=== PATIENT | female | born 1945 | race Two or more races ===

== ENCOUNTER 2018-05-10 10:43 | Outpatient (CLI) | payer OTHER | END 2018-05-10 10:52 | disposition home or self-care (01) | LOC: MAMO-SONO 10:43 | DX: Z12.31 Encounter for screening mammogram for malignant neoplasm of breast (principal); Z87.898 Personal history of other specified conditions; N63.14 Unspecified lump in the right breast, lower inner quadrant ==

== ENCOUNTER 2019-06-29 09:23 | Outpatient (CLI) | payer OTHER | END 2019-06-29 09:33 | disposition home or self-care (01) | LOC: MAMO-SONO 09:23 | DX: Z12.31 Encounter for screening mammogram for malignant neoplasm of breast (principal); D24.1 Benign neoplasm of right breast; D24.2 Benign neoplasm of left breast; Z87.898 Personal history of other specified conditions; Z09 Encounter for follow-up examination after completed treatment for conditions other than malignant neoplasm ==

== ENCOUNTER 2020-07-30 10:24 | Outpatient (CLI) | payer OTHER | END 2020-07-30 10:34 | disposition home or self-care (01) | LOC: MAMO-SONO 10:24 | PROVIDERS: ATTEND Specialist | DX: Z12.31 Encounter for screening mammogram for malignant neoplasm of breast (principal); D24.1 Benign neoplasm of right breast; D24.2 Benign neoplasm of left breast ==

== ENCOUNTER 2021-08-20 10:51 | Outpatient (CLI) | payer OTHER | END 2021-08-20 11:00 | disposition home or self-care (01) | LOC: MAMO-SONO 10:51 | PROVIDERS: ATTEND Specialist | DX: D24.1 Benign neoplasm of right breast (principal); D24.2 Benign neoplasm of left breast; Z12.31 Encounter for screening mammogram for malignant neoplasm of breast ==

== ENCOUNTER 2022-08-25 08:20 | Outpatient (CLI) | payer OTHER | END 2022-08-25 08:28 | disposition home or self-care (01) | LOC: MAMO-SONO 08:20 | PROVIDERS: ATTEND Specialist | DX: D24.1 Benign neoplasm of right breast (principal); D24.2 Benign neoplasm of left breast ==

== ENCOUNTER 2022-09-24 09:41 | Outpatient (CLI) | payer OTHER | END 2022-09-24 09:45 | disposition home or self-care (01) | LOC: TOM 09:41 | PROVIDERS: ATTEND Internal Medicine Gastroenterology | DX: K56.50 Intestinal adhesions [bands], unspecified as to partial versus complete obstruction (principal); R19.5 Other fecal abnormalities; Z86.010 Personal history of colon polyps ==

== ENCOUNTER 2023-09-22 08:51 | Outpatient (CLI) | payer OTHER | END 2023-09-22 09:03 | disposition home or self-care (01) | LOC: MAMO-SONO 08:51 | PROVIDERS: ATTEND Specialist | DX: D24.2 Benign neoplasm of left breast (principal); D24.1 Benign neoplasm of right breast; Z12.31 Encounter for screening mammogram for malignant neoplasm of breast ==